=== PATIENT | female | born 1950 | race Caucasian/White ===

== ENCOUNTER 2020-05-04 13:25 | Outpatient (CLI) | payer MEDICARE, OTHER, SELFPAY ==
--- NOTE | 2020-05-04 13:33 | MM_ITS ---
WS: [id number] DIAGNOSTIC BILATERAL DIGITAL MAMMOGRAM WITH CAD HISTORY: HX OF BREAST CA COMPARISON: 01/24/2018, 02/18/2015 TECHNIQUE: Bilateral craniocaudad, mediolateral oblique, and mediolateral views are submitted. Spot c ompression RIGHT MLO and cc. Computer aided detection utilized. Breast composition: There are scattered areas of fibroglandular density. No suspicious masses. Benign calcifications in the RIGHT breast and postsurgical changes. No interval change in appearance of the breast. MM/[place] [id number] IMPRESSION: BI-RADS: 2-Benign FOLLOW UP: 1 Year Follow-up
--- NOTE | 2020-05-04 14:34 | XR_ITS ---
WS: [id number] SCREENING DEXA SCAN [employer] CLINICAL INFORMATION: POST MENOPAUSAL DISORDER COMPARISON: 3 ,018 FINDINGS: The L1-L4 bone mineral density measures 1.157 g/cm2. This corresponds to a T score score of -0.2 and Z score of 1.8. Left femoral neck bone mineral density measures 0.696 g/cm2. This corresponds to a T score of -2.5 an d Z score of -0.7. Right femoral neck bone mineral density measures 0.729 g/cm2. This corresponds to a T score -2.2of an d Z score of -0.5. Mean femoral neck bone mineral density measures 0.713 g/cm2. This corresponds to a T score of -2.3 an d Z score of -0.6. XR/XR DEXA axial skeleton* [id number] IMPRESSION: Osteoporosis in the femoral necks at the lower end of the range. Appearance Normal bone mineral density in the lumbar spine although likely spur iously elevated due to endplate sclerosis Patient's FRAX calculated 10 year probability for major osteoporotic fracture i s 11.9 % and osteoporotic hip fracture is 2.9%.
== END 2020-05-04 13:26 | disposition home or self-care (01) ==
LOC: RADSHAW 13:30
PROVIDERS: PCP Internal Medicine; Visit Provider Nurse Practitioner
DX: Z85.3 Personal history of malignant neoplasm of breast (principal); N95.9 Unspecified menopausal and perimenopausal disorder; M81.0 Age-related osteoporosis without current pathological fracture
CPT/HCPCS: 77066; 77080

== ENCOUNTER 2021-10-21 10:25 | Outpatient (CLI) | payer MEDICARE, OTHER, SELFPAY ==
--- NOTE | 2021-10-21 10:55 | MM_ITS ---
WS: [id number] BILATERAL DIGITAL DIAGNOSTIC MAMMOGRAM MAMMOGRAPHY WITH CAD CLINICAL INFORMATION: HX OF BREAST C COMPARISON: May 04, 2020 TECHNIQUE: Bilateral CC, MLO, and ML views. FINDINGS: Scattered fibroglandular densities bilaterally. Vascular calcification. Eggshell calcification right breast. A few tiny incidental punctate calcifications. No suspicious focal mass, asymmetry, calcifications, or architectural distortion. No evidence of darren gnancy. MM/[place] [id number] IMPRESSION: BI-RADS: 2-Benign FOLLOW UP: 1 Year Follow-up Recommend return to annual diagnostic mammography.
== END 2021-10-21 10:26 | disposition home or self-care (01) ==
LOC: RADSHAW 10:32
PROVIDERS: PCP Nurse Practitioner; Visit Provider Nurse Practitioner
DX: Z85.3 Personal history of malignant neoplasm of breast (principal)
CPT/HCPCS: 77066

== ENCOUNTER 2022-10-27 11:17 | Outpatient (CLI) | payer MEDICARE, OTHER, SELFPAY ==
--- NOTE | 2022-10-27 11:24 | MM_ITS ---
WS: [id number] Bilateral diagnostic 3D tomosynthesis digital mammogram, 10/27/2022 Clinical Data: HX OF BREAST CA Comparison: 10/21/2021, 05/04/2020, 01/24/2018, 02/18/2015, 02/13/2014, 02/01/2013, 07/31/2012, 02/07/2012, , 06/21/2011. Findings: The breasts show fibroglandular tissue. There are no spiculated masses or clustered calcifications. T here is a mole marker on the right breast. There is no evidence of recurrent carcinoma. MM/[place] [id number] Impression: 1. Negative bilateral mammograms unchanged. 2. Recommend annual mammograms. BIRADS: 1-Negative FOLLOW UP: 1 Year Follow-up The CAD photo checker and assembler was used.
== END 2022-10-27 11:18 | disposition home or self-care (01) ==
PROVIDERS: PCP Nurse Practitioner; Visit Provider Nurse Practitioner
DX: Z85.3 Personal history of malignant neoplasm of breast (principal)
CPT/HCPCS: 77062; G0279

== ENCOUNTER 2024-12-23 10:54 | Outpatient (CLI) | payer MEDICARE, SELFPAY ==
--- NOTE | 2024-12-23 10:57 | MM_ITS ---
WS: [id number] BILATERAL SCREENING DIGITAL TOMOSYNTHESIS MAMMOGRAM WITH CAD HISTORY: SCREENING COMPARISON: 10/27/2022, 10/21/2021 Bilateral CC and MLO views with tomosynthesis and synthetic mammography submitted. Computer aided detection analyzed. Breast composition: There are scattered areas of fibroglandular density. No suspicious masses, microcalcifications or architectural distortion. MM/MM scr BI tomosynthesis [id number] IMPRESSION: BI-RADS: 2 - Benign. FOLLOW UP: 1 Year Follow-up
== END 2024-12-23 10:55 | disposition home or self-care (01) ==
PROVIDERS: PCP Nurse Practitioner; Visit Provider Nurse Practitioner
DX: Z12.31 Encounter for screening mammogram for malignant neoplasm of breast (principal); R92.323 Mammographic fibroglandular density, bilateral breasts
CPT/HCPCS: 77063; 77067

== ENCOUNTER 2025-10-15 14:22 | Outpatient (CLI) | payer MEDICARE, OTHER, SELFPAY ==
--- NOTE | 2025-10-15 14:26 | MR_ITS ---
WS: [id number] MRI BRAIN WITHOUT CONTRAST HISTORY: MODERATE COGNITIVE IMPAIRMENT COMPARISON: None available. TECHNIQUE: Diffusion imaging, multiplanar T1, T2 and FLAIR imaging obtained. No diffusion imaging abnormalities. No acute infarct. Moderate cerebral and cerebellar atrophy and volume loss. Severe periventricular and subcortical white matter signal abnormalities. There is confluent increased signal surrounding the ventricles extending towards the vertex. Additional patchy areas of increased signal in the subcortical white matter. There are numerous susceptibility artifacts scattered throughout the brain consistent with prior hemorrhage. Hemosiderin deposits are predominantly within the supratentorial white matter. In the occipital lobes, RIGHT frontal and parietal lobes. Mildly prominent ventricles and extra-axial spaces. No inferior displacement of cerebellar tonsils. The sella turcica and pituitary gland are unremarkable. Dural venous sinuses and [place] of [place] demonstrate no abnormality on this unenhanced studies. Paranasal sinuses: No air-fluid levels in the sinuses. Mastoid air cells: Normal. Calvarium and scalp: Intact. MR/MR head wo con* [id number] IMPRESSION: 1. No acute infarct. 2. Advanced small vessel changes in the supratentorial white matter. 3. Numerous susceptibility artifact throughout the supratentorial brain consis tent with microhemorrhages. Consider amyloid angiopathy. Small microhemorrhages from hypertension may appear similar. 4. No large infarct. 5. Mild cerebral and cerebellar atrophy.
== END 2025-10-15 14:23 | disposition home or self-care (01) ==
LOC: RAD 14:23
PROVIDERS: PCP Nurse Practitioner; Visit Provider Nurse Practitioner
DX: G93.89 Other specified disorders of brain (principal); I67.82 Cerebral ischemia
CPT/HCPCS: 70551